=== PATIENT | female | born 1940 | race Caucasian/White ===

== ENCOUNTER 2022-12-08 14:24 | Emergency (ER) | payer OTHER, MEDICARE ==
[~2022-12-08] VITALS: Ht 160 cm; Wt 45.4 kg
[2022-12-08 14:26] VITALS: BP 129/56; PULSE 95; RESP 17; TEMP 98.1; O2SAT 97
--- NOTE | 2022-12-08 14:27 | NUR ---
STEVENSON GARIBAY - PATIENT BIBA TO ER BED 09
[2022-12-08] MEDS ORDERED: NACL 0.9% 1,000 ML IV ONE (15:00)
[2022-12-08 15:35] LABS: BASOPHILS % (AUTO) 0.4 % (0.0-2.0); EOSINOPHILS % (AUTO) 0.4 % (0.0-4.0); HEMATOCRIT 36.6 % (36-48); HEMOGLOBIN 12.7 g/dL (12.0-16.0); LYMPHOCYTES # (AUTO) 0.6 K/uL (2.5-16.5); MEAN CORPUSCULAR HEMOGLOBIN 35 pg (27-31); MEAN CORPUSCULAR HGB CONC 35 g/dL (33-37); MEAN CORPUSCULAR VOLUME 100.2 fL (80-94); MONOCYTES # (AUTO) 0.4 K/uL (0.8-1.0); MONOCYTES % (AUTO) 6.2 % (1.7-9.3); NEUTROPHILS # (AUTO) 4.7 K/uL (1.8-7.7); PLATELET COUNT (AUTO) 366 K/uL (140-450); RED BLOOD CELL COUNT(AUTO) 3.65 MIL/uL (4.20-5.40); RED CELL DISTRIBUTION WIDTH 13.1 % (11.6-13.7); WHITE BLOOD COUNT (AUTO) 5.7 K/uL (4.8-10.8)
[2022-12-08 15:47] LABS: ALBUMIN 3.7 g/dL (3.4-5.0); ASPARTATE AMINOTRANSFERASE 74 U/L (15-37); CARBON DIOXIDE 27.4 mmol/L (21-32); CHLORIDE 106 mmol/L (98-107); CREATININE 0.8 mg/dL (0.6-1.3); GLUCOSE 126 mg/dL (74-106); POTASSIUM 3.4 mmol/L (3.5-5.1); SODIUM SERUM 143 mmol/L (136-145); TOTAL BILIRUBIN 0.9 mg/dL (0.0-1.0); UREA NITROGEN, BLOOD 24 mg/dL (7-18)
[2022-12-08 15:55] LABS: MAGNESIUM 2.4 mg/dL (1.8-2.4); PHOSPHORUS 2.8 mg/dL (2.5-4.9); THYROID STIMULATING HORMONE 1.68 uIU/mL (0.34-3.74)
--- NOTE | 2022-12-08 15:59 | NUR ---
CHEST HURT FROM RESCUE COMPRESSIONS ON SCENE. PT ASSISTED TO BR PER WHEELCHIAR TO VOID URINE. ABLE TO AMBULATE, NORMALLY USES CANE FOR SAFETY. PT MISSED COLLECTION HAT WHILE VOIDING URINE
[2022-12-08] MEDS ORDERED: CEFP200T20 PO (16:20)
[2022-12-08 16:50] VITALS: BP 124/76; PULSE 87; RESP 18; O2SAT 98
--- NOTE | 2022-12-08 16:51 | NUR ---
assisted to br- voided [facility]. [facility]
--- NOTE | 2022-12-08 16:52 | NUR ---
Patient discharged with v/s stable. Written and verbal after care instructions given and explained. Patient alert, oriented and verbalized understanding of instructions. Ambulatory/ wheelchair to car with steady gait. All questions addressed prior to discharge. ID band removed. Patient advised to follow up with PMD. Rx of cefpodoxime given. Patient educated on indication of medication including possible reaction and side effects. Opportunity to ask questions provided and answered.
== END 2022-12-08 16:52 | disposition home or self-care (01) ==
LOC: MED 14:24
DX: J32.9 Chronic sinusitis, unspecified (principal); R09.89 Other specified symptoms and signs involving the circulatory and respiratory systems; E03.9 Hypothyroidism, unspecified; Z88.0 Allergy status to penicillin; Z88.5 Allergy status to narcotic agent; Z79.1 Long term (current) use of non-steroidal anti-inflammatories (NSAID); Z88.8 Allergy status to other drugs, medicaments and biological substances; Z79.899 Other long term (current) drug therapy; Z98.890 Other specified postprocedural states
CPT/HCPCS: 36415; 70450; 71045; 80053; 83735; 83880; 84100; 84443; 84484; 85025; 93005; 96360; 99285; J7030